=== PATIENT | female | born 1995 | race Caucasian/White ===

== ENCOUNTER → 2019-11-11 | Outpatient (REF) | payer OTHER ==
[2019-11-11 13:30] LABS: APPEARANCE, URINE HAZY (CLEAR); BACTERIA, URINE AUTO NEGATIVE (NEGATIVE); BILIRUBIN, URINE AUTO NEGATIVE (NEGATIVE); BLOOD, URINE BLOOD NEGATIVE (NEGATIVE); COLOR, URINE YELLOW (YELLOW); GLUCOSE, URINE (UA) AUTO NEGATIVE (NEGATIVE); KETONE, URINE AUTO NEGATIVE (NEGATIVE); LEUKOCYTE ESTERASE, URINE AUTO NEGATIVE (NEGATIVE); MUCUS, URINE SMALL (NEGATIVE); NITRITE, URINE AUTO NEGATIVE (NEGATIVE); PROTEIN, URINE AUTO NEGATIVE (NEGATIVE); RBC, URINE AUTO 0 /HPF (0-3); SPECIFIC GRAVITY URINE AUTO 1.012 (1.002-1.035); SQUAMOUS EPITHELIAL CELL UR AU 3 /HPF (0-6); WBC, URINE AUTO 1 /HPF (0-3)
== END ==
LOC: M SMT 12:51
PROVIDERS: ATTEND Nurse Practitioner Family
DX: N39.0 Urinary tract infection, site not specified (principal)

== ENCOUNTER 2021-02-25 00:03 | Emergency (ER) | payer OTHER ==
[~2021-02-25] VITALS: Ht 160 cm; Wt 83.3 kg
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
[2021-02-25 02:00] VITALS: BP 114/64
== END 2021-02-25 02:01 | disposition home or self-care (01) ==
LOC: M ED 00:03
DX: S60.221A Contusion of right hand, initial encounter (principal); W22.8XXA Striking against or struck by other objects, initial encounter; Y92.810 Car as the place of occurrence of the external cause; Y93.9 Activity, unspecified; Y99.9 Unspecified external cause status; Z91.048 Other nonmedicinal substance allergy status; Z91.018 Allergy to other foods

== ENCOUNTER → 2022-01-02 | Outpatient (CLI) | payer OTHER | LOC: M PLALAB 14:56 | PROVIDERS: ATTEND Obstetrics & Gynecology | DX: Z34.81 Encounter for supervision of other normal pregnancy, first trimester (principal); Z31.5 Encounter for procreative genetic counseling ==

== ENCOUNTER → 2022-01-02 | Outpatient (CLI) | payer OTHER ==
[2022-01-02 17:21] LABS: BASO % 0.4 % (0.0-1.0); EOS % 0.4 % (0.0-3.0); HEMATOCRIT 34.6 % (36.0-47.0); HEMOGLOBIN 11.4 g/dl (12.0-15.5); LYMPH # 2.9 10^3/uL (1.5-5.0); LYMPH % 35.7 % (24.0-44.0); MEAN CORPUSCULAR HEMOGLOBIN 29.1 pg (27.0-33.0); MEAN CORPUSCULAR HGB CONC 32.9 g/dl (32.0-36.5); MEAN CORPUSCULAR VOLUME 88.3 fl (80.0-96.0); MONO # 0.5 10^3/uL (0.0-0.8); MONO % 6.4 % (2.0-8.0); NEUTROPHILS # 4.7 10^3/uL (1.5-8.5); NEUTROPHILS % 56.9 % (36.0-66.0); PLATELET COUNT, AUTOMATED 166 10^3/uL (150-450); RED BLOOD COUNT 3.92 10^6/uL (4.00-5.40); WHITE BLOOD COUNT 8.2 10^3/uL (4.0-10.0)
[2022-01-02 18:35] LABS: HEPATITIS C VIRUS ABY INDEX < 0.0 INDEX (<0.8); HIV 1&2 SCREEN CENTAUR NEGATIVE (NEGATIVE)
[2022-01-02 18:54] LABS: GC DNA AMPLIFICATION NEGATIVE (NEGATIVE)
== END ==
LOC: M PLALAB 15:05
PROVIDERS: ATTEND Advanced Practice Midwife
DX: O09.299 Supervision of pregnancy with other poor reproductive or obstetric history, unspecified trimester (principal); Z3A.00 Weeks of gestation of pregnancy not specified

== ENCOUNTER → 2022-02-17 | Outpatient (CLI) | payer OTHER | LOC: M WHC 12:05 | PROVIDERS: ATTEND Obstetrics & Gynecology | DX: Z36.9 Encounter for antenatal screening, unspecified (principal); Z3A.18 18 weeks gestation of pregnancy ==

== ENCOUNTER 2022-04-18 14:01 | Outpatient (CLI) | payer OTHER ==
[~2022-04-18] VITALS: Ht 162.6 cm; Wt 93.2 kg
[2022-04-18] MEDS ORDERED: PRENTAB9 PO (14:21)
[2022-04-18 14:35] VITALS: BP 117/59
[2022-04-18] MEDS ORDERED: valACYclovir HCL 500 MG TAB PO ONE (15:15)
[2022-04-18] MEDS ORDERED: VALT1TAB PO (15:17)
[2022-04-18 16:12] VITALS: BP 123/61
== END 2022-04-18 16:17 | disposition home or self-care (01) ==
LOC: M LDO 14:01
PROVIDERS: ATTEND Obstetrics & Gynecology
DX: O98.313 Other infections with a predominantly sexual mode of transmission complicating pregnancy, third trimester (principal); A60.09 Herpesviral infection of other urogenital tract; Z3A.37 37 weeks gestation of pregnancy

== ENCOUNTER → 2022-05-22 | Outpatient (REF) | payer OTHER ==
[~2022-05-22] MED LIST: PRENTAB9 PO; VALT1TAB PO
[2022-05-22 19:02] LABS: GC DNA AMPLIFICATION NEGATIVE (NEGATIVE)
== END ==
LOC: M SFHCWAGY 16:51
PROVIDERS: ATTEND Obstetrics & Gynecology
DX: N89.8 Other specified noninflammatory disorders of vagina (principal)

== ENCOUNTER → 2022-06-19 | Outpatient (REF) | payer OTHER | LOC: M SFHCWAGY 12:56 | PROVIDERS: ATTEND Obstetrics & Gynecology | DX: O98.513 Other viral diseases complicating pregnancy, third trimester (principal); Z3A.00 Weeks of gestation of pregnancy not specified ==

== ENCOUNTER 2022-06-28 18:53 | Outpatient (CLI) | payer OTHER ==
[~2022-06-28] VITALS: Ht 160 cm; Wt 101.3 kg
[2022-06-28 19:10] VITALS: BP 137/75
== END 2022-06-28 19:42 | disposition home or self-care (01) ==
LOC: M LDO 18:53
PROVIDERS: ATTEND Advanced Practice Midwife
DX: O36.8130 Decreased fetal movements, third trimester, not applicable or unspecified (principal); O26.23 Pregnancy care for patient with recurrent pregnancy loss, third trimester; O99.343 Other mental disorders complicating pregnancy, third trimester; F31.9 Bipolar disorder, unspecified; O98.313 Other infections with a predominantly sexual mode of transmission complicating pregnancy, third trimester; O23.593 Infection of other part of genital tract in pregnancy, third trimester; Z3A.37 37 weeks gestation of pregnancy; Z87.891 Personal history of nicotine dependence; Z91.018 Allergy to other foods

== ENCOUNTER 2022-07-04 23:12 | Inpatient (IN) | payer OTHER ==
[~2022-07-04] VITALS: Ht 160 cm; Wt 102.7 kg
[2022-07-04 23:42] VITALS: BP 100/58
[2022-07-04] MEDS ORDERED: LR 1,000 ML IV ONE (23:50)
[2022-07-05 00:13] VITALS: BP 100/58
[2022-07-05 00:40] LABS: HEMATOCRIT 29.6 % (36.0-47.0); HEMOGLOBIN 9.5 g/dl (12.0-15.5); MEAN CORPUSCULAR HEMOGLOBIN 26.8 pg (27.0-33.0); MEAN CORPUSCULAR HGB CONC 32.1 g/dl (32.0-36.5); MEAN CORPUSCULAR VOLUME 83.4 fl (80.0-96.0); PLATELET COUNT, AUTOMATED 180 10^3/uL (150-450); RED BLOOD COUNT 3.55 10^6/uL (4.00-5.40); WHITE BLOOD COUNT 15.5 10^3/uL (4.0-10.0)
[2022-07-05 01:01] LABS: AMPHETAMINES URINE REFLEX NEGATIVE (NEGATIVE); BARBITURATES URINE REFLEX NEGATIVE (NEGATIVE); BENZODIAZEPINES URINE REFLEX NEGATIVE (NEGATIVE); COCAINE METABOLITE URINE REFLE NEGATIVE (NEGATIVE); METHADONE URINE REFLEX NEGATIVE (NEGATIVE); OPIATES URINE REFLEX NEGATIVE (NEGATIVE); PHENCYCLIDINE URINE REFLEX NEGATIVE (NEGATIVE)
[2022-07-05 01:04] LABS: CANNABINOIDS URINE REFLEX PENDING CONFIRMATION (NEGATIVE)
[2022-07-05 01:21] VITALS: BP 103/57
[2022-07-05] MEDS ORDERED: LR 1,000 ML IV SCH ×2 (01:35→03:10)
== END 2022-07-05 07:40 | disposition home or self-care (01) | DRG 566 ==
LOC: M LDO 23:12 → M LDI 07-05 00:27
PROVIDERS: ADMIT Specialist; ATTEND Specialist
DX: O76 Abnormality in fetal heart rate and rhythm complicating labor and delivery (principal); Z3A.38 38 weeks gestation of pregnancy; Z91.013 Allergy to seafood

== ENCOUNTER 2022-07-05 09:55 | Inpatient (IN) | payer OTHER ==
[~2022-07-05] VITALS: Ht 160 cm; Wt 103.4 kg
[2022-07-05] VITALS (10 sets, daily range): BP systolic 90–141; BP diastolic 51–79
[2022-07-05] MEDS ORDERED: HOME MED LIST COMPLETE! XX SCH (10:25)
[2022-07-05] MEDS ORDERED: PENICILLIN G POTASSIUM 5 MU IV 5 MU in D5W MINI-BAG PLUS 100 ML IV STA (11:10)
[2022-07-05] MEDS ORDERED: LR 1,000 ML IV SCH ×2 (11:10→17:55)
[2022-07-05] MEDS ORDERED: METHYLERGONOVINE MALEATE 0.2 MG/ML VIAL (J2210) IM PRN (11:10)
[2022-07-05] MEDS ORDERED: TRANEXAMIC ACID INJection 1,000 MG in NS 100 ML IV PRN (11:10)
[2022-07-05] MEDS ORDERED: LACTATED RINGER'S 1000 ML IV STA (11:10)
[2022-07-05] MEDS ORDERED: CARBOPROST TROMETHAMINE 250 MCG/ML AMP IM PRN (11:10)
[2022-07-05] MEDS ORDERED: LIDOCAINE 1% MDV 20ML VIAL INFIL PRN (11:10)
[2022-07-05] MEDS ORDERED: OXYTOCIN DRIP 30 UNITS in IV 1 EA IV PRN ×4 (11:10)
[2022-07-05] MEDS ORDERED: OXYTOCIN INJ 10 UNITS/ML VIAL (J2590) IM PRN (11:10)
[2022-07-05] MEDS ORDERED: OXYTOCIN DRIP 30 UNITS in IV 1 EA IV SCH ×2 (11:30→17:15)
[2022-07-05 11:32] LABS: HEMATOCRIT 28.9 % (36.0-47.0); HEMOGLOBIN 9.7 g/dl (12.0-15.5); MEAN CORPUSCULAR HEMOGLOBIN 27.5 pg (27.0-33.0); MEAN CORPUSCULAR HGB CONC 33.6 g/dl (32.0-36.5); MEAN CORPUSCULAR VOLUME 81.9 fl (80.0-96.0); PLATELET COUNT, AUTOMATED 179 10^3/uL (150-450); RED BLOOD COUNT 3.53 10^6/uL (4.00-5.40); WHITE BLOOD COUNT 25.4 10^3/uL (4.0-10.0)
[2022-07-05] MEDS: AMPICILLIN SOD/SULBACTAM SOD 3 GM in D5W MINI-BAG PLUS 100 ML IV SCH ×2 (11:51→18:11)
[2022-07-05] MEDS ORDERED: ACETAMINOPHEN 500 MG TAB PO PRN (12:55)
[2022-07-05] MEDS ORDERED: BICITRA 30ML SOLN UDC PO ONE (14:55)
[2022-07-05] MEDS ORDERED: AZITHROMYCIN INJ 500 MG, VIAL MATE ADAPTER 1 EACH in NS 250 ML IV ONE (14:55)
[2022-07-05] MEDS ORDERED: ceFAZolin SOD 2 GM in IV 1 EA IV ONE (14:55)
[2022-07-05] MEDS ORDERED: PENICILLIN G POTASSIUM IV 2.5 MU in IV 1 EA IV SCH (15:10)
[2022-07-05 15:16] LABS: APPEARANCE, URINE MANUAL CLEAR (CLEAR); COLOR, URINE MANUAL YELLOW (YELLOW)
[2022-07-05 15:17] LABS: BILIRUBIN, URINE MANUAL NEGATIVE (NEGATIVE); GLUCOSE, URINE (UA) MANUAL NEGATIVE (NEGATIVE); KETONE, URINE MANUAL 1+ mg/dL (NEGATIVE); NITRITE, URINE MANUAL NEGATIVE (NEGATIVE); PH,URINE MAN 7.5 UNITS (5.0 - 7.0); PROTEIN, URINE MANUAL NEGATIVE (NEGATIVE); SPECIFIC GRAVITY,URINE MANUAL 1.005 (1.002-1.035); UROBILINOGEN, URINE MANUAL NORMAL (NORMAL)
[2022-07-05 15:18] LABS: BLOOD URINE MANUAL NEGATIVE (NEGATIVE); LEUKOCYTE ESTERASE, URINE MAN TRACE (NEGATIVE)
[2022-07-05] MEDS ORDERED: OXYTOCIN INJ 10 UNITS/ML VIAL (J2590) As Ordered ONE (15:24)
[2022-07-05] MEDS ORDERED: MORPHINE PRES-FREE INJ 10 MG/10 ML VIAL As Ordered ONE (15:27)
[2022-07-05] MEDS ORDERED: dexameTHASONE 4 MG/ML 1ML VIAL (J1100 PER 1MG) As Ordered ONE (15:28)
[2022-07-05] MEDS ORDERED: ONDANSETRON 4MG 2ML VIAL As Ordered ONE (15:28)
[2022-07-05] MEDS ORDERED: PHENYLephrine 500MCG 5ML (100MCG/ML) SYRINGE As Ordered ONE (16:17)
[2022-07-05 16:42] LABS: CORD GAS ABE V -7.6; CORD GAS HCO3 V 20.1 MEQ/L; CORD GAS O2 SAT V 24.7 %; CORD GAS PCO2 V 48.8 mmHg; CORD GAS PH V 7.233 UNITS; CORD GAS PO2 V 13.9 mmHg; CORD GAS SBC V 16.8 MEQ/L; CORD GAS TCO2 V 21.6 MEQ/L
[2022-07-05 16:44] LABS: CORD GAS ABE A -7.9; CORD GAS HCO3 A 20.3 MEQ/L; CORD GAS O2 SAT A 19.5 %; CORD GAS PCO2 A 51.5 mmHg; CORD GAS PH A 7.213 UNITS; CORD GAS PO2 A 11.5 mmHg; CORD GAS SBC A 16.5 MEQ/L; CORD GAS TCO2 A 21.9 MEQ/L
[2022-07-05] MEDS ORDERED: propofoL 200 MG/20 ML VIAL As Ordered ONE (16:53)
[2022-07-05] MEDS ORDERED: KETOROLAC 60MG 2ML VIAL As Ordered ONE (17:09)
[2022-07-05] MEDS ORDERED: OXYTOCIN 30 UNITS IN 0.9% NaCl 500ML IV BAG (J2590) As Ordered ONE (17:09)
[2022-07-05] MEDS: ACETAMINOPHEN 500 MG TAB PO SCH (17:15)
[2022-07-05] MEDS ORDERED: RHOGAM 300 MCG (1500 IU) INJ (J2790) IM SCH (17:15)
[2022-07-05] MEDS ORDERED: oxyCODONE 5MG TAB PO PRN ×2 (17:15→17:55)
[2022-07-05] MEDS ORDERED: ACETAMINOPHEN 1000MG 100ML IV BTL (OFIRMEV) (J0131 PER 10MG) As Ordered ONE (17:18)
[2022-07-05] MEDS ORDERED: ONDANSETRON 4MG 2ML VIAL IV PRN ×2 (17:55)
[2022-07-05] MEDS ORDERED: NALOXONE INJ 0.4MG/1ML VIAL (J2310 PER 1MG) IV PRN ×2 (17:55)
[2022-07-05] MEDS ORDERED: **NOTE PATIENT COMMENT** MISC XX SCH (17:55)
[2022-07-05] MEDS ORDERED: METOCLOPRAMIDE INJ 10MG/2ML VIAL (J2765 PER 1) IV PRN (17:55)
[2022-07-05] MEDS ORDERED: diphenhydrAMINE 50MG/ML VIAL (J1200) IV PRN (17:55)
[2022-07-05] MEDS: SLF 3 ML SYR IV SCH (17:55)
[2022-07-05] MEDS ORDERED: fentaNYL 100 MCG/2 ML INJECTION IV PRN (17:55)
[2022-07-05 19:15] LABS: THYROID STIMULATING HORMONE 2.09 uIU/ML (0.358-3.740); THYROXINE (T4) 15.2 UG/DL (4.5-12.0)
[2022-07-06] VITALS (7 sets, daily range): BP systolic 95–115; BP diastolic 49–70
[2022-07-06] MEDS: ACETAMINOPHEN 500 MG TAB PO SCH ×5 (00:03→23:56)
[2022-07-06] MEDS: DOCUSATE SODIUM 100MG CAPSULE PO SCH ×3 (00:03→21:09)
[2022-07-06] MEDS: KETOROLAC 30 MG/ML 1ML VIAL IV SCH ×3 (00:03→12:50)
[2022-07-06] MEDS: AMPICILLIN SOD/SULBACTAM SOD 3 GM in D5W MINI-BAG PLUS 100 ML IV SCH ×5 (00:03→23:56)
[2022-07-06] MEDS: SLF 3 ML SYR IV SCH ×2 (07:35→10:06)
[2022-07-06 07:40] LABS: HEMATOCRIT 27.7 % (36.0-47.0); HEMOGLOBIN 8.9 g/dl (12.0-15.5); MEAN CORPUSCULAR HEMOGLOBIN 26.4 pg (27.0-33.0); MEAN CORPUSCULAR HGB CONC 32.1 g/dl (32.0-36.5); MEAN CORPUSCULAR VOLUME 82.2 fl (80.0-96.0); PLATELET COUNT, AUTOMATED 199 10^3/uL (150-450); RED BLOOD COUNT 3.37 10^6/uL (4.00-5.40); WHITE BLOOD COUNT 22.6 10^3/uL (4.0-10.0)
[2022-07-06] MEDS: PRENATAL VITAMINS CHEWABLE TABLET PO SCH (10:06)
[2022-07-06] MEDS: SIMETHICONE 80MG CHEW TAB PO PRN (21:09)
[2022-07-06] MEDS: oxyCODONE 5MG TAB PO PRN (21:09)
[2022-07-06] MEDS: IBUPROFEN 800 MG TAB PO SCH (21:10)
[2022-07-07 02:00] VITALS: BP 119/69
[2022-07-07] MEDS: ACETAMINOPHEN 500 MG TAB PO SCH ×3 (04:36→18:15)
[2022-07-07] MEDS: IBUPROFEN 800 MG TAB PO SCH ×3 (04:36→19:57)
[2022-07-07] MEDS: oxyCODONE 5MG TAB PO PRN ×2 (04:37→09:34)
[2022-07-07] MEDS: AMPICILLIN SOD/SULBACTAM SOD 3 GM in D5W MINI-BAG PLUS 100 ML IV SCH ×3 (04:38→18:17)
[2022-07-07 06:00] VITALS: BP 101/53
[2022-07-07 08:30] VITALS: BP 109/59
[2022-07-07] MEDS ORDERED: MEASLES,MUMPS,RUBELLA VACCINE INJ (MMR-II) (90707) SC.IMMUN ONE (09:00)
[2022-07-07] MEDS: PRENATAL VITAMINS CHEWABLE TABLET PO SCH (09:35)
[2022-07-07] MEDS: DOCUSATE SODIUM 100MG CAPSULE PO SCH ×2 (09:35→19:57)
[2022-07-07 18:00] VITALS: BP 110/52
[2022-07-07] MEDS: SIMETHICONE 80MG CHEW TAB PO PRN (18:30)
[2022-07-08 00:30] VITALS: BP 106/54
[2022-07-08] MEDS: AMPICILLIN SOD/SULBACTAM SOD 3 GM in D5W MINI-BAG PLUS 100 ML IV SCH ×2 (00:33→05:49)
[2022-07-08] MEDS: ACETAMINOPHEN 500 MG TAB PO SCH ×3 (00:33→10:53)
[2022-07-08] MEDS: IBUPROFEN 800 MG TAB PO SCH ×2 (03:30→10:53)
[2022-07-08 06:00] VITALS: BP 120/57
[2022-07-08] MEDS ORDERED: OXYC-517 PO (10:24)
[2022-07-08] MEDS ORDERED: IBUP80TA PO (10:24)
[2022-07-08] MEDS ORDERED: COLA100C5 PO (10:24)
[2022-07-08] MEDS: DOCUSATE SODIUM 100MG CAPSULE PO SCH (10:52)
[2022-07-08] MEDS: PRENATAL VITAMINS CHEWABLE TABLET PO SCH (10:52)
[2022-07-08] MEDS ORDERED: MEASLES,MUMPS,RUBELLA VACCINE INJ (MMR-II) (90707) SC.IMMUN ONE (11:00)
== END 2022-07-08 11:13 | disposition home or self-care (01) | DRG 540 ==
LOC: M LDI 09:55 → M OBS 19:39
PROVIDERS: ADMIT Advanced Practice Midwife; ATTEND Obstetrics & Gynecology
PROC: 3E033VJ Introduction of Other Hormone into Peripheral Vein, Percutaneous Approach (ICD-10-PCS; 2022-07-05)
PROC: 10D00Z1 Extraction of Products of Conception, Low, Open Approach (ICD-10-PCS; principal; 2022-07-05 16:00)
DX: O76 Abnormality in fetal heart rate and rhythm complicating labor and delivery (principal); O41.1230 Chorioamnionitis, third trimester, not applicable or unspecified; O61.0 Failed medical induction of labor; O99.824 Streptococcus B carrier state complicating childbirth; Z37.0 Single live birth; Z3A.38 38 weeks gestation of pregnancy